=== PATIENT | male | born 1935 | race Two or more races ===

== ENCOUNTER 2024-09-15 10:24 | Emergency (ER) | payer OTHER ==
[~2024-09-15] VITALS: Ht 165.1 cm; Wt 59.9 kg
[2024-09-15] MEDS ORDERED: CHILDREN'S ASPI81 MG PO (10:30)
[2024-09-15] MEDS ORDERED: ROSUVASTATIN CA20 MG PO (10:31)
[2024-09-15] MEDS ORDERED: XELPROS2.5 ML OP (10:31)
[2024-09-15] MEDS ORDERED: CLOPIDOGREL BIS75 MG PO (10:31)
[2024-09-15] MEDS ORDERED: ZESTRIL10 M1 PO (10:31)
[2024-09-15] MEDS ORDERED: GABAPENTIN300 M2 PO (10:32)
[2024-09-15 15:20] LABS: BASO % 0.8 % (0.1-1.2); EOS # 0.87 (0.04-0.54); EOS % 9.4 % (0.7-7.0); HEMATOCRIT 42.7 % (40.1-51.0); HEMOGLOBIN 14.1 g/dL (13.7-17.5); LYMPH # 2.18 (1.18-3.74); LYMPH % 23.6 % (19.3-53.1); MEAN CORPUSCULAR HEMOGLOBIN 32.9 pg (25.6-32.2); MONO # 0.51 (0.24-0.82); MONO % 5.5 % (4.7-12.5); NEUT % 60.5 % (34.0-71.1); PLATELET COUNT 263 K/uL (163-369); RED BLOOD COUNT 4.29 M/uL (4.63-6.08); RED CELL DISTRIBUTION WIDTH 13.6 % (11.6-14.4)
[2024-09-15 15:50] LABS: CREATININE SERUM 0.86 mg/dL (0.70-1.30); GFR 84.32; POTASSIUM 4.33 mEq/L (3.5-5.1)
[2024-09-15] MEDS ORDERED: ALBUTEROL SULFATE 3 ML/2.5 MG AMPUL.NEB IH STA (16:07)
[2024-09-15 16:25] LABS: INFLUENZA A AG NEGATIVE (NEGATIVE); INFLUENZA B AG NEGATIVE (NEGATIVE)
[2024-09-15 16:28] LABS: COVID-19 AG NEGATIVE (NEGATIVE)
[2024-09-15] MEDS ORDERED: ALBUTEROL SULFATE 3 ML/2.5 MG AMPUL.NEB IH ONE (17:11)
[2024-09-15] MEDS ORDERED: METHYLPREDNISOLONE SOD SUCC 125 MG VIAL IV STA (17:44)
[2024-09-15] MEDS ORDERED: LEVALBUTEROL HCL 1.25 MG/3 ML SOLUTION IH SCH (17:45)
[2024-09-15] MEDS ORDERED: METHYLPREDNISOLONE SOD SUCC 125 MG VIAL ONE (19:01)
[2024-09-15] MEDS ORDERED: LEVALBUTEROL HCL 1.25 MG/3 ML SOLUTION IH ONE (19:27)
[2024-09-15 19:35] LABS: BICARBONATE 25.2 mmol/l (23-25); SaO2 93.4 %; Tco2 26.4 mmol/l
[2024-09-15 19:44] LABS: allen test SATISFACTORY; mode ROOM AIR; o2 21 %; puncture site RADIAL LEFT
[2024-09-15 19:45] LABS: ABG pCO2 38.8 mmHg (35-45)
== END 2024-09-15 20:17 | disposition home or self-care (01) ==
LOC: ER 10:40
PROVIDERS: General Practice
DX: J40 Bronchitis, not specified as acute or chronic (principal); J06.9 Acute upper respiratory infection, unspecified
CPT/HCPCS: 36415; 71046; 82803; 94640; 96365; 99283; J3490

== ENCOUNTER 2024-10-06 17:31 | Inpatient (IN) | payer OTHER ==
[~2024-10-06] VITALS: Ht 167.6 cm; Wt 49.9 kg
[~2024-10-06 17:31] MED LIST: CHILDREN'S ASPI81 MG PO; CLOPIDOGREL BIS75 MG PO; GABAPENTIN300 M2 PO; ROSUVASTATIN CA20 MG PO; XELPROS2.5 ML OP; ZESTRIL10 M1 PO
--- NOTE | 2024-10-06 17:46 | NUR ---
SE RECIBE PTE ALERTA Y ORIENTADO EL CUAL REFIERE VENIR POR DIFICULTAD RESPIRATORIA DESDE HACE VARIOS DE. SE MIDEN S/V A PTE Y SE REALIZA EKG. PTE SE UBICA EN AREA.
[2024-10-06] MEDS ORDERED: LEVALBUTEROL HCL 1.25 MG/3 ML SOLUTION IH STA (18:38)
[2024-10-06] MEDS ORDERED: METHYLPREDNISOLONE SOD SUCC 125 MG VIAL IV STA (18:42)
[2024-10-06 19:03] LABS: ABG PH 7.393 (7.35-7.45); ABG PO2 71.5 mmHg (80-100); BICARBONATE 24.7 mmol/l (23-25)
[2024-10-06 19:09] LABS: o2 21 %
--- NOTE | 2024-10-06 19:27 | NUR ---
SE ORIENTA PTE SOBRE [place] MEDICO Y PTE REFIERE ENTENDER. SE ADMINISTRAN MEDICAMENTOS Y SE LISA MUESTRAS DE [facility] ORDEN MEDICA BAJO MEDIDAS ASEPTICAS. PT EN ESPERA DE XRAY.
[2024-10-06 19:28] LABS: BASO % 0.6 % (0.1-1.2); EOS # 1.32 (0.04-0.54); EOS % 13.7 % (0.7-7.0); LYMPH # 1.98 (1.18-3.74); LYMPH % 20.5 % (19.3-53.1); MEAN PLATELET VOLUME 11.30 fl (9.4-12.4); MONO # 0.44 (0.24-0.82); MONO % 4.6 % (4.7-12.5); NEUT # 5.84 (1.56-6.13); NEUT % 60.4 % (34.0-71.1); RED CELL DISTRIBUTION WIDTH 13.2 % (11.6-14.4)
[2024-10-06 20:09] LABS: ALT/SGPT 24.0 U/L (12-78); AST/SGOT 20.0 U/L (15-37); BILIRUBIN TOTAL 0.66 mg/dL (0.3-1.2); BUN CREA RATIO 16.0 (7.0-25.0); CREATININE SERUM 0.94 mg/dL (0.70-1.30); GFR 76.09; GLOBULINA 4.0 G/DL (2.4-3.5); GLUCOSE FASTING 102.0 mg/dL (65-100); OSMOLALITY SERUM 290.0 MOSM/KG (275-295)
[2024-10-06 21:03] LABS: COVID-19 AG NEGATIVE (NEGATIVE)
[2024-10-07] MEDS ORDERED: ENALAPRILAT DIHYDRATE 1.25 MG/ML VIAL IV PRN (00:15)
[2024-10-07] MEDS ORDERED: ACETAMINOPHEN 325 MG TABLET PO PRN (00:15)
[2024-10-07] MEDS ORDERED: 0.9 % SODIUM CHLORIDE 1,000 ML IV SCH (00:15)
[2024-10-07 00:31] VITALS: BP 160/80; O2SAT 96
[2024-10-07] MEDS ORDERED: METHYLPREDNISOLONE SOD SUCC 40 MG VIAL IV SCH ×2 (01:00→17:00)
[2024-10-07 03:46] VITALS: BP 152/81; O2SAT 98
[2024-10-07] MEDS ORDERED: GUAIFENESIN 100 MG/5 ML BLIST.PACK PO SCH (06:00)
[2024-10-07] MEDS ORDERED: LEVALBUTEROL HCL 1.25 MG/3 ML SOLUTION IH SCH (06:00)
[2024-10-07 06:08] LABS: URINE APPEARANCE Clear; URINE BILIRRUBIN Negative (NEGATIVE); URINE BLOOD Negative; URINE COLOR Yellow; URINE GLUCOSE Negative (NEGATIVE); URINE KETONE 15 (NEGATIVE); URINE LEUKOCYTE Negative; URINE NITRATE Negative; URINE PROTEIN Negative (NEGATIVE); URINE UROBILINOGEN 0.2 E.U./dl
[2024-10-07 06:12] LABS: URINE RBC 5.7 uL (0.0-20.8)
[2024-10-07 06:23] LABS: URINE BACTERIA 1.2 uL (0.0-1933); URINE CAST 0.00 uL (0.0-1.40); URINE EPITHELIAL CELLS 0.4 uL (0.0-38.8); URINE WBC 0.6 uL (0.0-23.2)
[2024-10-07 07:17] LABS: D DIMER 0.5 MG/L
[2024-10-07 07:20] LABS: INR 1.03
[2024-10-07] MEDS ORDERED: ENOXAPARIN SODIUM 30 MG/0.3 ML SYRINGE SUBCUTANEO SCH (09:00)
[2024-10-07 09:05] VITALS: BP 159/83; O2SAT 96
[2024-10-07] MEDS ORDERED: NICOTINE 21MG/24HR PATCH.TD24 TD SCH (11:00)
[2024-10-07] MEDS ORDERED: BUDESONIDE 0.5 MG/2 ML AMPUL.NEB IH NR (12:00)
[2024-10-07] MEDS ORDERED: IPRATROPIUM BROMIDE 0.5 MG/2.5 ML AMPUL.NEB IH SCH (12:00)
[2024-10-07 16:00] VITALS: BP 154/77; O2SAT 97
[2024-10-07] MEDS ORDERED: BUDESONIDE 0.5 MG/2 ML AMPUL.NEB IH SCH (21:00)
[2024-10-08 01:38] VITALS: BP 139/78; O2SAT 98
[2024-10-08 08:00] VITALS: BP 159/78; O2SAT 99
[2024-10-08 09:18] LABS: ABG PH 7.349 (7.35-7.45); ABG PO2 75.3 mmHg (80-100); BICARBONATE 22.5 mmol/l (23-25)
[2024-10-08 09:35] LABS: o2 28 %
[2024-10-08] MEDS ORDERED: IPRATROPIUM BROMIDE 0.5 MG/2.5 ML AMPUL.NEB IH SCH (13:00)
[2024-10-08] MEDS ORDERED: LEVALBUTEROL HCL 1.25 MG/3 ML SOLUTION IH SCH (13:00)
[2024-10-08 17:13] VITALS: BP 166/77; O2SAT 98
[2024-10-09 01:14] VITALS: BP 162/82; O2SAT 99
[2024-10-09 14:37] VITALS: BP 188/88; O2SAT 96
[2024-10-09 19:02] VITALS: BP 160/84; O2SAT 98
[2024-10-09 19:52] LABS: BASO % 0.1 % (0.1-1.2); EOS # 0.00 (0.04-0.54); EOS % 0.0 % (0.7-7.0); LYMPH # 1.00 (1.18-3.74); LYMPH % 7.1 % (19.3-53.1); MEAN PLATELET VOLUME 11.40 fl (9.4-12.4); MONO # 0.71 (0.24-0.82); MONO % 5.0 % (4.7-12.5); NEUT # 12.27 (1.56-6.13); NEUT % 87.3 % (34.0-71.1); RED CELL DISTRIBUTION WIDTH 13.2 % (11.6-14.4)
[2024-10-09 20:22] LABS: ALT/SGPT 21.0 U/L (12-78); AST/SGOT 14.0 U/L (15-37); BILIRUBIN TOTAL 0.4 mg/dL (0.3-1.2); BUN CREA RATIO 20.0 (7.0-25.0); CREATININE SERUM 1.15 mg/dL (0.70-1.30); GFR 60.3; GLOBULINA 3.1 G/DL (2.4-3.5); GLUCOSE FASTING 115.0 mg/dL (65-100); OSMOLALITY SERUM 288.0 MOSM/KG (275-295)
[2024-10-10 01:00] VITALS: BP 165/80
[2024-10-10 09:37] VITALS: BP 154/78; O2SAT 98
[2024-10-10] MEDS ORDERED: LEVALBUTEROL HCL 1.25 MG/3 ML SOLUTION IH SCH (12:00)
[2024-10-10] MEDS ORDERED: IPRATROPIUM BROMIDE 0.5 MG/2.5 ML AMPUL.NEB IH SCH (12:00)
[2024-10-10 18:30] VITALS: BP 172/85; O2SAT 98
[2024-10-11 01:37] VITALS: BP 160/85; O2SAT 95
[2024-10-11 08:00] VITALS: BP 157/86; O2SAT 100
== END 2024-10-11 13:35 | disposition home or self-care (01) | DRG 192 ==
LOC: ER 17:38 → SURH 10-07 00:10 → MEDJ 10-09 10:07
PROVIDERS: General Practice; ADMIT Internal Medicine; ATTEND Internal Medicine
PROC: BB24Y0Z Computerized Tomography (CT Scan) of Bilateral Lungs using Other Contrast, Unenhanced and Enhanced (ICD-10-PCS; principal; 2024-10-07)
PROC: 3E0F7GC Introduction of Other Therapeutic Substance into Respiratory Tract, Via Natural or Artificial Opening (ICD-10-PCS; 2024-10-07)
DX: J44.1 Chronic obstructive pulmonary disease with (acute) exacerbation (principal); J44.0 Chronic obstructive pulmonary disease with (acute) lower respiratory infection; J20.9 Acute bronchitis, unspecified; Z72.0 Tobacco use; I10 Essential (primary) hypertension